=== PATIENT | male | born 1960 | race Caucasian/White ===

== ENCOUNTER 2021-07-01 06:05 | Inpatient (IN) ==
[~2021-07-01 06:05] MED LIST: ceFAZolin 1,000 MG, Sodium Chloride IRRigation 1,000 ML IR ONE
[2021-07-01] MEDS ORDERED: CeFAZolin Syr 2,000MG/20 ML 2,000 MG/20 ML SYRINGE IVPB ONE (06:31)
[2021-07-01] MEDS ORDERED: Ringers Solution, Lactated 1,000 ML IVC SCH (06:45)
[2021-07-01] MEDS ORDERED: *HR* Rocuronium Bromide 50 MG/5 ML VIAL ONE ×3 (07:02→09:26)
[2021-07-01] MEDS ORDERED: Ondansetron 4 MG/2 ML VIAL ONE (07:02)
[2021-07-01] MEDS ORDERED: *HR* Midazolam HCl 2 MG/2 ML VIAL ONE (07:02)
[2021-07-01] MEDS ORDERED: *HR* Propofol 200 MG/20 ML VIAL IVP ONE ×2 (07:02→07:12)
[2021-07-01] MEDS ORDERED: *HR* FentaNYL (PF) 100 MCG/2 ML VIAL ONE ×2 (07:02→08:54)
[2021-07-01] MEDS ORDERED: Lidocaine -MPF 4% 5 ML AMPUL ONE (07:02)
[2021-07-01] MEDS ORDERED: Lidocaine -MPF 2% 5 ML VIAL ONE (07:02)
[2021-07-01] MEDS ORDERED: *HR* Succinylcholine 200 MG/10 ML VIAL IVP ONE (07:02)
[2021-07-01] MEDS ORDERED: *HR* OxyCODONE Immed Rel 5 MG TABLET PO PRN (07:15)
[2021-07-01] MEDS ORDERED: Ondansetron 4 MG/2 ML VIAL IVP PRN ×2 (07:15→13:56)
[2021-07-01] MEDS ORDERED: *HR* Heparin 5,000 UNIT/ML VIAL ONE (07:25)
[2021-07-01] MEDS ORDERED: Bupivacaine-MPF 0.25% 10 ML VIAL ONE (07:28)
[2021-07-01] MEDS ORDERED: Heparin 1,000 UNITS/500 mL 0 ML ONE (07:28)
[2021-07-01] MEDS ORDERED: Ketamine HCL *QUVA* 50mg (1mL) SYRINGE ONE ×2 (09:01→09:58)
[2021-07-01] MEDS ORDERED: *HR* HYDROMORPHONE 2 MG/ML VIAL ONE (10:12)
[2021-07-01] MEDS ORDERED: Albumin Human 5% 12.5 GM/250 ML IV.SOLN ONE (10:45)
[2021-07-01] MEDS: *HR* HYDROmorphone PF 0.5 MG/0.5 ML SYRINGE IVP PRN ×2 (12:32→13:03)
[2021-07-01] MEDS ORDERED: Acetaminophen IV 1,000 MG/100 ML BAG IVPB ONE ×2 (13:19→13:21)
[2021-07-01] MEDS ORDERED: *HR* Labetalol 20 MG/4 ML SYRINGE IVP PRN (13:56)
[2021-07-01] MEDS ORDERED: Naloxone 0.4 MG/ML INJ IVP PRN (13:56)
[2021-07-01] MEDS: *HR* HYDROmorphone (PF) 1 MG/ML SYRINGE IVP PRN ×3 (14:12→21:44)
[2021-07-01] MEDS: Famotidine 20 MG/2 ML VIAL IVP SCH (17:26)
[2021-07-01] MEDS: *HR* Metoprolol 5 MG/5 ML VIAL IVP SCH ×2 (17:26→23:34)
[2021-07-01] MEDS: CeFAZolin 2 GM/120 ML BAG IVPB SCH ×2 (18:07→23:33)
[2021-07-01] MEDS: D5% in 0.9% NACL w KCl 20 MEQ/1,000 ML MLS IVC SCH (18:07)
[2021-07-02] MEDS: *HR* HYDROmorphone (PF) 1 MG/ML SYRINGE IVP PRN ×6 (01:54→12:15)
[2021-07-02] MEDS: Famotidine 20 MG/2 ML VIAL IVP SCH ×2 (04:56→17:17)
[2021-07-02] MEDS: *HR* Metoprolol 5 MG/5 ML VIAL IVP SCH ×4 (04:58→17:17)
[2021-07-02 06:14] LABS: Basophils # 0.1 K/mcL (0.0-0.2); Basophils % 0.4 %; Eosinophils # 0.1 K/mcL (0.0-0.6); Eosinophils % 0.5 %; Hematocrit 40.1 % (37.5-50.1); Hemoglobin 13.8 g/dL (12.9-16.9); Immature Granulocytes % 0.4 % (0-4); Lymphocytes # 2.9 K/mcL (0.6-4.6); Lymphocytes % 21.1 %; Mean Corpuscular HGB Conc 34.4 g/dL (31.6-35.5); Mean Corpuscular Hemoglobin 33.1 pg (28.0-33.3); Mean Corpuscular Volume 96.2 fL (83.0-100.0); Mean Platelet Volume 9.5 fL (9.4-12.4); Monocytes # 1.2 K/mcL (0.0-1.3); Monocytes % 8.5 %; Neutrophils # 9.4 K/mcL (1.6-8.9); Platelet Count 353 K/mcL (140-400); Red Blood Count 4.17 M/mcL (4.19-5.50); Red Cell Distribution Width 13.2 % (11.5-14.5); Segmented Neutrophils % 69.1 %; White Blood Count 13.6 K/mcL (4.3-11.1)
[2021-07-02] MEDS: CeFAZolin 2 GM/120 ML BAG IVPB SCH (08:26)
[2021-07-02 09:10] LABS: BUN/Creatinine Ratio 11 (6-26); Blood Urea Nitrogen 8 mg/dL (8-23); Calcium 8.7 mg/dL (8.6-10.3); Carbon Dioxide 22 mEq/L (23-29); Chloride 108 mEq/L (98-107); Glucose 108 mg/dL (70-105); Osmolality,Calculated 285 (280-300); Potassium 3.8 mEq/L (3.5-5.1); Sodium 138 mEq/L (136-145); eGFR For African Americans > 60 (> 60); eGFR For Non-African Americans > 60 (> 60)
[2021-07-02] MEDS: D5% in 0.9% NACL w KCl 20 MEQ/1,000 ML MLS IVC SCH (10:41)
[2021-07-02] MEDS ORDERED: Morphine PCA 30 MG/ 30 ML 30 ML PCA.VIAL IVC PRN (12:54)
[2021-07-02 13:18] LABS: Amylase 34 Units/L (29-103)
[2021-07-02] MEDS ORDERED: Chloraseptic Spray 177 ML BOTTLE MM PRN (13:19)
[2021-07-02] MEDS ORDERED: 0.9 % Sodium Chloride 250 ML ONE (13:49)
[2021-07-02] MEDS: Morphine PCA 30 MG/ 30 ML 30 ML PCA.VIAL IVC PRN (21:28)
[2021-07-03] MEDS: D5% in 0.9% NACL w KCl 20 MEQ/1,000 ML MLS IVC SCH ×2 (00:32→14:44)
[2021-07-03] MEDS: *HR* Metoprolol 5 MG/5 ML VIAL IVP SCH ×4 (00:32→17:08)
[2021-07-03] MEDS ORDERED: 0.9 % Sodium Chloride 250 ML ONE ×2 (03:36→21:55)
[2021-07-03 05:17] LABS: Hematocrit 40.3 % (37.5-50.1); Hemoglobin 13.4 g/dL (12.9-16.9); Mean Corpuscular HGB Conc 33.3 g/dL (31.6-35.5); Mean Corpuscular Hemoglobin 32.9 pg (28.0-33.3); Mean Platelet Volume 9.1 fL (9.4-12.4); Platelet Count 324 K/mcL (140-400); Red Blood Count 4.07 M/mcL (4.19-5.50); Red Cell Distribution Width 13.1 % (11.5-14.5); White Blood Count 15.1 K/mcL (4.3-11.1)
[2021-07-03] MEDS: Morphine PCA 30 MG/ 30 ML 30 ML PCA.VIAL IVC PRN ×3 (05:29→18:33)
[2021-07-03 05:30] LABS: Amylase 50 Units/L (29-103); BUN/Creatinine Ratio 14 (6-26); Blood Urea Nitrogen 9 mg/dL (8-23); Calcium 8.9 mg/dL (8.6-10.3); Carbon Dioxide 21 mEq/L (23-29); Chloride 106 mEq/L (98-107); Glucose 114 mg/dL (70-105); Osmolality,Calculated 282 (280-300); Potassium 3.7 mEq/L (3.5-5.1); Sodium 136 mEq/L (136-145); eGFR For African Americans > 60 (> 60); eGFR For Non-African Americans > 60 (> 60)
[2021-07-03 05:47] LABS: VBG Ionized Calcium 1.07 mmol/L (1.15-1.35)
[2021-07-03] MEDS: Famotidine 20 MG/2 ML VIAL IVP SCH ×2 (06:00→18:38)
[2021-07-03 06:09] LABS: Magnesium 1.5 mg/dL (1.6-2.6); Phosphorous 3.2 mg/dL (2.7-4.5)
[2021-07-04] MEDS: *HR* Metoprolol 5 MG/5 ML VIAL IVP SCH ×5 (01:14→23:23)
[2021-07-04] MEDS: Morphine PCA 30 MG/ 30 ML 30 ML PCA.VIAL IVC PRN ×2 (01:14→07:55)
[2021-07-04 03:11] LABS: BUN/Creatinine Ratio 14 (6-26); Blood Urea Nitrogen 9 mg/dL (8-23); Calcium 8.6 mg/dL (8.6-10.3); Carbon Dioxide 25 mEq/L (23-29); Chloride 106 mEq/L (98-107); Glucose 99 mg/dL (70-105); Magnesium 1.9 mg/dL (1.6-2.6); Osmolality,Calculated 283 (280-300); Potassium 3.7 mEq/L (3.5-5.1); Sodium 137 mEq/L (136-145); eGFR For African Americans > 60 (> 60); eGFR For Non-African Americans > 60 (> 60)
[2021-07-04 03:14] LABS: Hematocrit 36.4 % (37.5-50.1); Hemoglobin 12.4 g/dL (12.9-16.9); Mean Corpuscular HGB Conc 34.1 g/dL (31.6-35.5); Mean Corpuscular Hemoglobin 33.2 pg (28.0-33.3); Mean Corpuscular Volume 97.3 fL (83.0-100.0); Mean Platelet Volume 9.7 fL (9.4-12.4); Platelet Count 306 K/mcL (140-400); Red Blood Count 3.74 M/mcL (4.19-5.50); Red Cell Distribution Width 12.7 % (11.5-14.5); White Blood Count 11.3 K/mcL (4.3-11.1)
[2021-07-04] MEDS: D5% in 0.9% NACL w KCl 20 MEQ/1,000 ML MLS IVC SCH (03:52)
[2021-07-04] MEDS: Famotidine 20 MG/2 ML VIAL IVP SCH ×2 (06:16→19:43)
[2021-07-04] MEDS ORDERED: Furosemide 40 MG/4 ML VIAL IVP ONE ×2 (12:43→15:43)
[2021-07-04] MEDS ORDERED: 0.9 % Sodium Chloride 250 ML ONE (13:56)
[2021-07-04] MEDS: *HR* HYDROmorphone PCA *PREMADE* 20 MG/1MG/ML (20mL) PCA VIAL IVC PRN (14:04)
[2021-07-04] MEDS ORDERED: Isovue-370 500 ML BOTTLE IVP ONE ×2 (15:33→17:04)
[2021-07-04] MEDS: Ipratropium/Albuterol Neb 3 ML IH SCH ×3 (16:22→23:20)
[2021-07-04] MEDS: Nitroglycerin 1 INCH/GM PACKET TP SCH (16:34)
[2021-07-04] MEDS ORDERED: cefTRIAXone 1,000 MG in 0.9 % Sodium Chloride 10 ML IVP SCH (18:00)
[2021-07-04] MEDS: Doxycycline 100 MG in 0.9 % Sodium Chloride Mini Bag 100 ML IVPB SCH (19:43)
[2021-07-04] MEDS: MethylPREDNISolone 40 MG/ML VIAL IVP SCH (23:23)
[2021-07-05 02:25] LABS: BUN/Creatinine Ratio 18 (6-26); Blood Urea Nitrogen 13 mg/dL (8-23); Calcium 8.9 mg/dL (8.6-10.3); Carbon Dioxide 25 mEq/L (23-29); Chloride 102 mEq/L (98-107); Glucose 127 mg/dL (70-105); Magnesium 1.9 mg/dL (1.6-2.6); Osmolality,Calculated 290 (280-300); Potassium 3.6 mEq/L (3.5-5.1); Sodium 139 mEq/L (136-145); eGFR For African Americans > 60 (> 60); eGFR For Non-African Americans > 60 (> 60)
[2021-07-05 02:40] LABS: Hematocrit 35.9 % (37.5-50.1); Hemoglobin 12.3 g/dL (12.9-16.9); Mean Corpuscular HGB Conc 34.3 g/dL (31.6-35.5); Mean Corpuscular Hemoglobin 32.6 pg (28.0-33.3); Mean Corpuscular Volume 95.2 fL (83.0-100.0); Mean Platelet Volume 9.8 fL (9.4-12.4); Platelet Count 321 K/mcL (140-400); Red Blood Count 3.77 M/mcL (4.19-5.50); Red Cell Distribution Width 12.6 % (11.5-14.5)
[2021-07-05 02:41] LABS: White Blood Count 20.1 K/mcL (4.3-11.1)
[2021-07-05] MEDS: Ipratropium/Albuterol Neb 3 ML IH SCH ×5 (03:28→20:16)
[2021-07-05] MEDS: *HR* Metoprolol 5 MG/5 ML VIAL IVP SCH ×3 (06:02→21:10)
[2021-07-05] MEDS: Famotidine 20 MG/2 ML VIAL IVP SCH ×2 (06:14→16:33)
[2021-07-05] MEDS: Doxycycline 100 MG in 0.9 % Sodium Chloride Mini Bag 100 ML IVPB SCH (06:14)
[2021-07-05] MEDS: Nitroglycerin 1 INCH/GM PACKET TP SCH ×2 (06:14→14:17)
[2021-07-05] MEDS ORDERED: 0.9 % Sodium Chloride 250 ML ONE (07:29)
[2021-07-05] MEDS: MethylPREDNISolone 40 MG/ML VIAL IVP SCH ×2 (07:35→16:30)
[2021-07-05] MEDS: *HR* HYDROmorphone PCA *PREMADE* 20 MG/1MG/ML (20mL) PCA VIAL IVC PRN (09:03)
[2021-07-05] MEDS: Piperacillin/Tazobactam 3.375 GM in 0.9 % Sodium Chloride Mini Bag 100 ML IVPB SCH ×2 (09:04→16:31)
[2021-07-05] MEDS: Melatonin 3 MG TABLET PO PRN (21:10)
[2021-07-06] MEDS: Ipratropium/Albuterol Neb 3 ML IH SCH ×7 (00:08→23:20)
[2021-07-06] MEDS ORDERED: 0.9 % Sodium Chloride 250 ML ONE ×2 (00:51→19:26)
[2021-07-06] MEDS: MethylPREDNISolone 40 MG/ML VIAL IVP SCH ×4 (00:56→23:32)
[2021-07-06] MEDS: Piperacillin/Tazobactam 3.375 GM in 0.9 % Sodium Chloride Mini Bag 100 ML IVPB SCH ×4 (00:56→23:33)
[2021-07-06] MEDS: *HR* Metoprolol 5 MG/5 ML VIAL IVP SCH ×5 (00:56→23:33)
[2021-07-06 05:20] LABS: Basophils % 0.1 %; Hemoglobin 11.9 g/dL (12.9-16.9); Immature Granulocytes % 0.6 % (0-4); Lymphocytes # 0.9 K/mcL (0.6-4.6); Lymphocytes % 5.4 %; Mean Corpuscular HGB Conc 33.1 g/dL (31.6-35.5); Mean Corpuscular Hemoglobin 31.6 pg (28.0-33.3); Mean Corpuscular Volume 95.7 fL (83.0-100.0); Mean Platelet Volume 9.8 fL (9.4-12.4); Monocytes # 0.6 K/mcL (0.0-1.3); Monocytes % 3.8 %; Neutrophils # 15.1 K/mcL (1.6-8.9); Platelet Count 359 K/mcL (140-400); Red Blood Count 3.76 M/mcL (4.19-5.50); Red Cell Distribution Width 12.7 % (11.5-14.5); Segmented Neutrophils % 90.1 %; White Blood Count 16.8 K/mcL (4.3-11.1)
[2021-07-06] MEDS: Nitroglycerin 1 INCH/GM PACKET TP SCH ×2 (05:25→12:18)
[2021-07-06] MEDS: Famotidine 20 MG/2 ML VIAL IVP SCH ×2 (05:33→18:01)
[2021-07-06 05:40] LABS: BUN/Creatinine Ratio 34 (6-26); Blood Urea Nitrogen 28 mg/dL (8-23); Calcium 9.9 mg/dL (8.6-10.3); Carbon Dioxide 27 mEq/L (23-29); Chloride 105 mEq/L (98-107); Glucose 168 mg/dL (70-105); Magnesium 2.3 mg/dL (1.6-2.6); Osmolality,Calculated 303 (280-300); Phosphorous 3.9 mg/dL (2.7-4.5); Potassium 3.5 mEq/L (3.5-5.1); Sodium 142 mEq/L (136-145); eGFR For African Americans > 60 (> 60); eGFR For Non-African Americans > 60 (> 60)
[2021-07-06] MEDS: *HR* HYDROmorphone PCA *PREMADE* 20 MG/1MG/ML (20mL) PCA VIAL IVC PRN (09:52)
[2021-07-07] MEDS: Ipratropium/Albuterol Neb 3 ML IH SCH ×5 (03:38→19:50)
[2021-07-07] MEDS: *HR* Metoprolol 5 MG/5 ML VIAL IVP SCH ×2 (03:57→17:03)
[2021-07-07] MEDS: Nitroglycerin 1 INCH/GM PACKET TP SCH ×2 (03:57→17:03)
[2021-07-07 05:01] LABS: Basophils % 0.1 %; Hematocrit 35.9 % (37.5-50.1); Hemoglobin 12.1 g/dL (12.9-16.9); Lymphocytes # 0.9 K/mcL (0.6-4.6); Lymphocytes % 6.2 %; Mean Corpuscular HGB Conc 33.7 g/dL (31.6-35.5); Mean Corpuscular Hemoglobin 32.2 pg (28.0-33.3); Mean Corpuscular Volume 95.5 fL (83.0-100.0); Mean Platelet Volume 9.9 fL (9.4-12.4); Monocytes # 0.5 K/mcL (0.0-1.3); Monocytes % 3.3 %; Neutrophils # 13.2 K/mcL (1.6-8.9); Platelet Count 382 K/mcL (140-400); Red Blood Count 3.76 M/mcL (4.19-5.50); Red Cell Distribution Width 12.9 % (11.5-14.5); Segmented Neutrophils % 89.4 %; White Blood Count 14.8 K/mcL (4.3-11.1)
[2021-07-07 05:18] LABS: BUN/Creatinine Ratio 37 (6-26); Blood Urea Nitrogen 29 mg/dL (8-23); Calcium 9.5 mg/dL (8.6-10.3); Carbon Dioxide 27 mEq/L (23-29); Chloride 104 mEq/L (98-107); Glucose 157 mg/dL (70-105); Osmolality,Calculated 301 (280-300); Potassium 3.3 mEq/L (3.5-5.1); Sodium 141 mEq/L (136-145); eGFR For African Americans > 60 (> 60); eGFR For Non-African Americans > 60 (> 60)
[2021-07-07] MEDS: Famotidine 20 MG/2 ML VIAL IVP SCH ×2 (05:24→17:04)
[2021-07-07] MEDS: D5% in 0.9% NACL w KCl 20 MEQ/1,000 ML MLS IVC SCH (07:42)
[2021-07-07] MEDS: Piperacillin/Tazobactam 3.375 GM in 0.9 % Sodium Chloride Mini Bag 100 ML IVPB SCH ×2 (08:27→17:04)
[2021-07-07] MEDS: MethylPREDNISolone 40 MG/ML VIAL IVP SCH ×2 (08:27→17:04)
[2021-07-07] MEDS: *HR* HYDROmorphone PCA *PREMADE* 20 MG/1MG/ML (20mL) PCA VIAL IVC PRN (08:30)
[2021-07-07] MEDS ORDERED: Ketorolac 30 MG/ML VIAL IVP PRN (12:41)
[2021-07-07] MEDS: Potassium Chloride Elixir 20 MEQ/15 ML UDC PO SCH ×2 (14:26→21:03)
[2021-07-07] MEDS: *HR* HYDROcodone/Acet 5/325 mg TABLET PO PRN (17:07)
[2021-07-07] MEDS ORDERED: Acetaminophen 325 MG TABLET PO PRN (20:54)
[2021-07-07] MEDS: Melatonin 3 MG TABLET PO PRN (21:03)
[2021-07-08] MEDS: Ipratropium/Albuterol Neb 3 ML IH SCH ×5 (00:07→15:27)
[2021-07-08 00:55] LABS: Basophils % 0.1 %; Hematocrit 36.2 % (37.5-50.1); Hemoglobin 12.2 g/dL (12.9-16.9); Immature Granulocytes % 0.8 % (0-4); Lymphocytes # 1.2 K/mcL (0.6-4.6); Lymphocytes % 11.9 %; Mean Corpuscular HGB Conc 33.7 g/dL (31.6-35.5); Mean Corpuscular Hemoglobin 32.3 pg (28.0-33.3); Mean Corpuscular Volume 95.8 fL (83.0-100.0); Mean Platelet Volume 9.6 fL (9.4-12.4); Monocytes # 0.7 K/mcL (0.0-1.3); Monocytes % 6.5 %; Neutrophils # 8.1 K/mcL (1.6-8.9); Platelet Count 385 K/mcL (140-400); Red Blood Count 3.78 M/mcL (4.19-5.50); Red Cell Distribution Width 12.5 % (11.5-14.5); Segmented Neutrophils % 80.7 %; White Blood Count 10.1 K/mcL (4.3-11.1)
[2021-07-08 01:11] LABS: BUN/Creatinine Ratio 29 (6-26); Blood Urea Nitrogen 20 mg/dL (8-23); Calcium 8.9 mg/dL (8.6-10.3); Carbon Dioxide 27 mEq/L (23-29); Chloride 101 mEq/L (98-107); Glucose 173 mg/dL (70-105); Magnesium 2.1 mg/dL (1.6-2.6); Osmolality,Calculated 287 (280-300); Phosphorous 2.9 mg/dL (2.7-4.5); Potassium 4.2 mEq/L (3.5-5.1); Sodium 135 mEq/L (136-145); eGFR For African Americans > 60 (> 60); eGFR For Non-African Americans > 60 (> 60)
[2021-07-08] MEDS: Nitroglycerin 1 INCH/GM PACKET TP SCH ×2 (06:00→12:41)
[2021-07-08] MEDS: Famotidine 20 MG/2 ML VIAL IVP SCH ×2 (06:00→16:50)
[2021-07-08] MEDS: *HR* Metoprolol 5 MG/5 ML VIAL IVP SCH ×4 (06:00→16:50)
[2021-07-08] MEDS: Piperacillin/Tazobactam 3.375 GM in 0.9 % Sodium Chloride Mini Bag 100 ML IVPB SCH ×3 (09:09→16:51)
[2021-07-08] MEDS: MethylPREDNISolone 40 MG/ML VIAL IVP SCH ×3 (09:12→16:50)
[2021-07-08] MEDS: *HR* HYDROcodone/Acet 5/325 mg TABLET PO PRN ×2 (09:17→12:47)
[2021-07-08 16:12] VITALS: BP 160/84; PULSE 57; TEMP 98.5; O2SAT 94
== END 2021-07-08 19:08 | disposition home or self-care (01) | DRG 356 ==
LOC: SAMDAY 06:05 → 2NNU 13:56
PROVIDERS: ADMIT Surgery Vascular Surgery; ATTEND Surgery Vascular Surgery